=== PATIENT | female | born 1950 | race Caucasian/White ===

== ENCOUNTER 2023-02-10 16:32 | Inpatient (IN) | payer MEDICARE, SELFPAY ==
[~2023-02-10] VITALS: Ht 157.5 cm; Wt 81.6 kg
[2023-02-10 18:30] VITALS: BP 122/60; TEMP 97.1; O2SAT 95
[2023-02-10 19:29] VITALS: BP 114/58; TEMP 97.9; O2SAT 93
[2023-02-10] MEDS ORDERED: IPRATROPIUM 0.5MG/ALBUTEROL 2.5MG INH SOL UD 3ML (DUONEB) NEB ONE (20:05)
[2023-02-10] MEDS ORDERED: IPRATROPIUM 0.5MG/ALBUTEROL 2.5MG INH SOL UD 3ML (DUONEB) NEB PRN (20:10)
[2023-02-10 20:34] LABS: BASO % 0.2 % (0.0-1.0); HEMATOCRIT 38.7 % (36.0-47.0); HEMOGLOBIN 12.4 g/dl (12.0-15.5); LYMPH # 0.5 10^3/uL (1.5-5.0); LYMPH % 2.3 % (24.0-44.0); MEAN CORPUSCULAR HEMOGLOBIN 25.2 pg (27.0-33.0); MEAN CORPUSCULAR VOLUME 78.7 fl (80.0-96.0); MONO # 0.2 10^3/uL (0.0-0.8); MONO % 0.8 % (2.0-8.0); NEUTROPHILS # 22.4 10^3/uL (1.5-8.5); NEUTROPHILS % 95.8 % (36.0-66.0); PLATELET COUNT, AUTOMATED 324 10^3/uL (150-450); RED BLOOD COUNT 4.92 10^6/uL (4.00-5.40); WHITE BLOOD COUNT 23.3 10^3/uL (4.0-10.0)
[2023-02-10] MEDS ORDERED: ASPIRIN 81MG ENTERIC TABLET PO ONE (20:35)
[2023-02-10] MEDS ORDERED: GABAPENTIN 400MG CAP PO ONE (20:35)
[2023-02-10 20:59] LABS: BLOOD UREA NITROGEN 25 MG/DL (9-23); CALCIUM LEVEL 9.4 MG/DL (8.3-10.6); CARBON DIOXIDE LEVEL 26 MMOL/L (20-31); CHLORIDE LEVEL 100 MMOL/L (98-107); CREATININE FOR GFR 0.79 MG/DL (0.55-1.30); GLOMERULAR FILTRATION RATE > 60.0 (>39); GLUCOSE, FASTING 146 MG/DL (74-106); POTASSIUM SERUM 4.1 MMOL/L (3.5-5.1); SODIUM LEVEL 136 MMOL/L (136-145)
[2023-02-10] MEDS ORDERED: ACETAMINOPHEN TAB 650MG DOSE (2X325MG) PO PRN (21:00)
[2023-02-10] MEDS: GABAPENTIN 300 MG CAP PO SCH (21:00)
[2023-02-10] MEDS: ASPIRIN 81MG ENTERIC TABLET PO SCH (21:00)
[2023-02-10] MEDS ORDERED: LevoFLOXacin IV 750 MG in IV 1 EA IV SCH (21:05)
[2023-02-10] MEDS ORDERED: ANALGESIC BALM CRM 3OZ TOP PRN (21:45)
[2023-02-10] MEDS ORDERED: RAMELTEON 8 MG TAB (ROZEREM) PO ONE (21:45)
[2023-02-10 21:57] LABS: PROCALCITONIN 0.48 ng/ml
[2023-02-10 21:57] LABS: ABG BASE EXCESS 2.8 (-2.0-2.0); ABG HCO3 26.1 MMOL/L (22.0-26.0); ABG O2 SATURATION 96.4 % (95.0-99.0); ABG PARTIAL PRESSURE CO2 35.7 mmHg (35.0-45.0); ABG PARTIAL PRESSURE O2 79.6 mmHg (75.0-100.0); ABG TOTAL CO2 27.2 MMOL/L (23.0-31.0); ABG pH (ARTERIAL) 7.482 UNITS (7.350-7.450)
[2023-02-10] MEDS ORDERED: FERR325T18 PO (22:26)
[2023-02-10] MEDS ORDERED: IPRA0.00 INH (22:26)
[2023-02-10] MEDS ORDERED: COMBAER6 INH (22:26)
[2023-02-10] MEDS ORDERED: CELE20TA PO (22:26)
[2023-02-10] MEDS ORDERED: HYDR12.55 PO (22:26)
[2023-02-10] MEDS ORDERED: FLUT1BLS8 INH (22:26)
[2023-02-10] MEDS ORDERED: GABA600T4 PO ×2 (22:26)
[2023-02-10] MEDS ORDERED: CYAN-1 PO (22:26)
[2023-02-10] MEDS ORDERED: ASPI-161 PO (22:26)
[2023-02-10] MEDS ORDERED: PANT40TA29 PO (22:26)
[2023-02-10] MEDS ORDERED: HOME MED LIST COMPLETE! XX SCH (22:30)
[2023-02-10] MEDS: cefTRIAXone SOD 1 GM in D5W MINI-BAG PLUS 50 ML IV SCH (22:54)
[2023-02-10] MEDS: methylPREDNISolone 40MG 1ML VIAL IV SCH (22:54)
[2023-02-10 23:00] VITALS: O2SAT 96
[2023-02-10 23:17] VITALS: BP 103/52; TEMP 97.3; O2SAT 92
[2023-02-11] VITALS (16 sets, daily range): BP systolic 116–128; BP diastolic 55–59; TEMP 97–97.9; O2SAT 89–100
[2023-02-11] MEDS ORDERED: diphenhydrAMINE 25MG CAP PO ONE (01:05)
[2023-02-11] MEDS ORDERED: IPRATROPIUM 0.5MG/ALBUTEROL 2.5MG INH SOL UD 3ML (DUONEB) NEB SCH (02:00)
[2023-02-11 06:06] LABS: HEMATOCRIT 35.2 % (36.0-47.0); HEMOGLOBIN 11.2 g/dl (12.0-15.5); MEAN CORPUSCULAR HEMOGLOBIN 24.8 pg (27.0-33.0); MEAN CORPUSCULAR HGB CONC 31.8 g/dl (32.0-36.5); PLATELET COUNT, AUTOMATED 298 10^3/uL (150-450); RED BLOOD COUNT 4.51 10^6/uL (4.00-5.40); WHITE BLOOD COUNT 18.8 10^3/uL (4.0-10.0)
[2023-02-11] MEDS: methylPREDNISolone 40MG 1ML VIAL IV SCH ×3 (06:27→21:36)
[2023-02-11 06:37] LABS: BLOOD UREA NITROGEN 28 MG/DL (9-23); CALCIUM LEVEL 10.3 MG/DL (8.3-10.6); CARBON DIOXIDE LEVEL 28 MMOL/L (20-31); CHLORIDE LEVEL 99 MMOL/L (98-107); CREATININE FOR GFR 0.76 MG/DL (0.55-1.30); GLOMERULAR FILTRATION RATE > 60.0 (>39); GLUCOSE, FASTING 141 MG/DL (74-106); SODIUM LEVEL 136 MMOL/L (136-145)
[2023-02-11] MEDS ORDERED: TIOTROPIUM INHALER/CAPSULE (SPIRIVA) INH SCH (08:00)
[2023-02-11] MEDS ORDERED: SYMBICORT 160/4.5MCG INHALER 6GM INH SCH (08:00)
[2023-02-11] MEDS: IPRATROPIUM 0.5MG/ALBUTEROL 2.5MG INH SOL UD 3ML (DUONEB) NEB SCH ×5 (08:01→23:19)
[2023-02-11] MEDS ORDERED: hydroCHLOROthiazide 12.5 MG CAPSULE PO SCH (09:00)
[2023-02-11] MEDS: FERROUS SULFATE 325MG TAB PO SCH (09:06)
[2023-02-11] MEDS: ENOXAPARIN 40MG/0.4ML SYRINGE (J1650 PER 10MG) SC SCH (09:06)
[2023-02-11] MEDS: GABAPENTIN 300 MG CAP PO SCH ×3 (09:07→19:47)
[2023-02-11] MEDS ORDERED: NS 1,000 ML IV SCH (12:00)
[2023-02-11] MEDS: CALCIUM CARBONATE 500 MG CHEW U/D PO PRN (14:02)
[2023-02-11] MEDS: PANTOPRAZOLE 40MG VIAL IV SCH ×2 (14:03→23:27)
[2023-02-11] MEDS: guaiFENesin ER TABLET 600 MG TAB PO SCH ×2 (14:03→19:48)
[2023-02-11] MEDS ORDERED: PANTOPRAZOLE 40MG TAB (PROTONIX) PO SCH (15:00)
[2023-02-11] MEDS: BUDESONIDE 0.5 MG/2 ML INHALATION SUSPENSION INH SCH (19:18)
[2023-02-11] MEDS: FORMOTEROL FUMARATE 20 MCG/2 ML INHALATION SOLUTION (PERFOROMIST) INH SCH (19:18)
[2023-02-11] MEDS: ASPIRIN 81MG ENTERIC TABLET PO SCH (19:48)
[2023-02-11] MEDS: cefTRIAXone SOD 1 GM in D5W MINI-BAG PLUS 50 ML IV SCH (21:35)
[2023-02-12] MEDS: IPRATROPIUM 0.5MG/ALBUTEROL 2.5MG INH SOL UD 3ML (DUONEB) NEB SCH ×6 (03:18→23:12)
[2023-02-12] MEDS: CALCIUM CARBONATE 500 MG CHEW U/D PO PRN ×2 (03:41→22:51)
[2023-02-12 04:00] VITALS: BP 115/56; TEMP 96.8; O2SAT 98
[2023-02-12 04:28] LABS: BASO % 0.1 % (0.0-1.0); HEMATOCRIT 33.6 % (36.0-47.0); HEMOGLOBIN 10.5 g/dl (12.0-15.5); LYMPH # 0.7 10^3/uL (1.5-5.0); LYMPH % 3.7 % (24.0-44.0); MEAN CORPUSCULAR HEMOGLOBIN 24.6 pg (27.0-33.0); MEAN CORPUSCULAR HGB CONC 31.3 g/dl (32.0-36.5); MEAN CORPUSCULAR VOLUME 78.9 fl (80.0-96.0); MONO # 0.6 10^3/uL (0.0-0.8); MONO % 3.6 % (2.0-8.0); NEUTROPHILS # 16.4 10^3/uL (1.5-8.5); NEUTROPHILS % 91.4 % (36.0-66.0); PLATELET COUNT, AUTOMATED 302 10^3/uL (150-450); RED BLOOD COUNT 4.26 10^6/uL (4.00-5.40); WHITE BLOOD COUNT 17.9 10^3/uL (4.0-10.0)
[2023-02-12 04:50] LABS: BLOOD UREA NITROGEN 28 MG/DL (9-23); CALCIUM LEVEL 8.7 MG/DL (8.3-10.6); CARBON DIOXIDE LEVEL 25 MMOL/L (20-31); CHLORIDE LEVEL 102 MMOL/L (98-107); CREATININE FOR GFR 0.67 MG/DL (0.55-1.30); GLOMERULAR FILTRATION RATE > 60.0 (>39); GLUCOSE, FASTING 156 MG/DL (74-106); POTASSIUM SERUM 4.4 MMOL/L (3.5-5.1); SODIUM LEVEL 137 MMOL/L (136-145)
[2023-02-12] MEDS: methylPREDNISolone 40MG 1ML VIAL IV SCH ×2 (06:17→17:37)
[2023-02-12] MEDS: FORMOTEROL FUMARATE 20 MCG/2 ML INHALATION SOLUTION (PERFOROMIST) INH SCH ×3 (07:37→19:14)
[2023-02-12] MEDS: BUDESONIDE 0.5 MG/2 ML INHALATION SUSPENSION INH SCH ×2 (07:37→19:14)
[2023-02-12] MEDS: GABAPENTIN 300 MG CAP PO SCH ×3 (08:34→20:20)
[2023-02-12] MEDS: guaiFENesin ER TABLET 600 MG TAB PO SCH ×2 (08:34→20:20)
[2023-02-12] MEDS: FERROUS SULFATE 325MG TAB PO SCH (08:34)
[2023-02-12] MEDS: ENOXAPARIN 40MG/0.4ML SYRINGE (J1650 PER 10MG) SC SCH (08:34)
[2023-02-12 09:34] LABS: PERCENT SATURATION 6.5 % (13.2-45.0)
[2023-02-12 09:36] LABS: FERRITIN 30.3 NG/ML (7.3-270.7)
[2023-02-12 09:37] LABS: FOLATE 9.63 NG/ML (>5.4)
[2023-02-12] MEDS: PANTOPRAZOLE 40MG VIAL IV SCH ×2 (13:00→22:51)
[2023-02-12 14:00] VITALS: BP 122/72; TEMP 97.9; O2SAT 96
[2023-02-12] MEDS: ASPIRIN 81MG ENTERIC TABLET PO SCH (20:20)
[2023-02-12 20:32] VITALS: BP 134/72; TEMP 97.7; O2SAT 96
[2023-02-12] MEDS: cefTRIAXone SOD 1 GM in D5W MINI-BAG PLUS 50 ML IV SCH (21:58)
[2023-02-13] MEDS: IPRATROPIUM 0.5MG/ALBUTEROL 2.5MG INH SOL UD 3ML (DUONEB) NEB SCH ×5 (04:00→19:00)
[2023-02-13 05:59] LABS: BASO % 0.1 % (0.0-1.0); EOS % 0.1 % (0.0-3.0); HEMATOCRIT 34.6 % (36.0-47.0); HEMOGLOBIN 10.9 g/dl (12.0-15.5); LYMPH % 7.1 % (24.0-44.0); MEAN CORPUSCULAR HEMOGLOBIN 25.1 pg (27.0-33.0); MEAN CORPUSCULAR HGB CONC 31.5 g/dl (32.0-36.5); MEAN CORPUSCULAR VOLUME 79.5 fl (80.0-96.0); MONO # 0.7 10^3/uL (0.0-0.8); MONO % 5.5 % (2.0-8.0); NEUTROPHILS # 11.5 10^3/uL (1.5-8.5); NEUTROPHILS % 86.1 % (36.0-66.0); PLATELET COUNT, AUTOMATED 322 10^3/uL (150-450); RED BLOOD COUNT 4.35 10^6/uL (4.00-5.40); WHITE BLOOD COUNT 13.4 10^3/uL (4.0-10.0)
[2023-02-13 06:00] VITALS: BP 137/88; TEMP 97.5; O2SAT 97
[2023-02-13 06:32] LABS: BLOOD UREA NITROGEN 20 MG/DL (9-23); CALCIUM LEVEL 8.9 MG/DL (8.3-10.6); CARBON DIOXIDE LEVEL 27 MMOL/L (20-31); CHLORIDE LEVEL 103 MMOL/L (98-107); CREATININE FOR GFR 0.61 MG/DL (0.55-1.30); GLOMERULAR FILTRATION RATE > 60.0 (>39); GLUCOSE, FASTING 115 MG/DL (74-106); POTASSIUM SERUM 4.3 MMOL/L (3.5-5.1); SODIUM LEVEL 138 MMOL/L (136-145)
[2023-02-13] MEDS: methylPREDNISolone 40MG 1ML VIAL IV SCH ×4 (06:36→22:48)
[2023-02-13] MEDS: FORMOTEROL FUMARATE 20 MCG/2 ML INHALATION SOLUTION (PERFOROMIST) INH SCH ×2 (07:29→19:00)
[2023-02-13] MEDS: BUDESONIDE 0.5 MG/2 ML INHALATION SUSPENSION INH SCH ×2 (07:30→19:00)
[2023-02-13] MEDS: FERROUS SULFATE 325MG TAB PO SCH (08:54)
[2023-02-13] MEDS: guaiFENesin ER TABLET 600 MG TAB PO SCH ×2 (08:54→20:11)
[2023-02-13] MEDS: GABAPENTIN 300 MG CAP PO SCH ×2 (08:55→12:20)
[2023-02-13] MEDS: ENOXAPARIN 40MG/0.4ML SYRINGE (J1650 PER 10MG) SC SCH (08:58)
[2023-02-13] MEDS: AZITHROMYCIN 250MG TABLET PO SCH (10:17)
[2023-02-13] MEDS: PANTOPRAZOLE 40MG VIAL IV SCH ×2 (12:20→22:48)
[2023-02-13 13:57] VITALS: BP 135/65; TEMP 97.5; O2SAT 95
[2023-02-13 19:56] VITALS: BP 142/82; TEMP 98.1; O2SAT 95
[2023-02-13] MEDS: ASPIRIN 81MG ENTERIC TABLET PO SCH (20:11)
[2023-02-13] MEDS ORDERED: GABAPENTIN 400MG CAP PO SCH (21:00)
[2023-02-13] MEDS: cefTRIAXone SOD 1 GM in D5W MINI-BAG PLUS 50 ML IV SCH (21:52)
[2023-02-13] MEDS: CALCIUM CARBONATE 500 MG CHEW U/D PO PRN (22:47)
[2023-02-14] MEDS: IPRATROPIUM 0.5MG/ALBUTEROL 2.5MG INH SOL UD 3ML (DUONEB) NEB SCH ×4 (00:01→11:11)
[2023-02-14 05:21] VITALS: BP 138/80; TEMP 97.3; O2SAT 93
[2023-02-14] MEDS: methylPREDNISolone 40MG 1ML VIAL IV SCH (05:50)
[2023-02-14 05:51] LABS: BASO % 0.1 % (0.0-1.0); HEMOGLOBIN 11.4 g/dl (12.0-15.5); LYMPH # 0.7 10^3/uL (1.5-5.0); LYMPH % 7.4 % (24.0-44.0); MEAN CORPUSCULAR HGB CONC 31.7 g/dl (32.0-36.5); MEAN CORPUSCULAR VOLUME 78.9 fl (80.0-96.0); MONO # 0.5 10^3/uL (0.0-0.8); MONO % 5.2 % (2.0-8.0); NEUTROPHILS # 7.6 10^3/uL (1.5-8.5); NEUTROPHILS % 85.8 % (36.0-66.0); PLATELET COUNT, AUTOMATED 319 10^3/uL (150-450); RED BLOOD COUNT 4.56 10^6/uL (4.00-5.40); WHITE BLOOD COUNT 8.9 10^3/uL (4.0-10.0)
[2023-02-14 06:25] LABS: BLOOD UREA NITROGEN 20 MG/DL (9-23); CALCIUM LEVEL 9.2 MG/DL (8.3-10.6); CARBON DIOXIDE LEVEL 27 MMOL/L (20-31); CHLORIDE LEVEL 104 MMOL/L (98-107); CREATININE FOR GFR 0.59 MG/DL (0.55-1.30); GLOMERULAR FILTRATION RATE > 60.0 (>39); GLUCOSE, FASTING 125 MG/DL (74-106); POTASSIUM SERUM 4.4 MMOL/L (3.5-5.1); SODIUM LEVEL 139 MMOL/L (136-145)
[2023-02-14] MEDS: FORMOTEROL FUMARATE 20 MCG/2 ML INHALATION SOLUTION (PERFOROMIST) INH SCH (07:08)
[2023-02-14] MEDS: BUDESONIDE 0.5 MG/2 ML INHALATION SUSPENSION INH SCH (07:08)
[2023-02-14] MEDS: AZITHROMYCIN 250MG TABLET PO SCH (08:38)
[2023-02-14] MEDS: ENOXAPARIN 40MG/0.4ML SYRINGE (J1650 PER 10MG) SC SCH (08:38)
[2023-02-14] MEDS: GABAPENTIN 300 MG CAP PO SCH (08:39)
[2023-02-14] MEDS: FERROUS SULFATE 325MG TAB PO SCH (08:39)
[2023-02-14] MEDS: guaiFENesin ER TABLET 600 MG TAB PO SCH (08:39)
[2023-02-14] MEDS ORDERED: PRED50TA PO (10:23)
[2023-02-14] MEDS ORDERED: PRED10TA2 PO (10:23)
[2023-02-14] MEDS ORDERED: CEFD300CAP PO (10:23)
[2023-02-14] MEDS ORDERED: AZIT500T5 PO (10:23)
[2023-02-14] MEDS ORDERED: PANT40TA29 PO (10:23)
== END 2023-02-14 12:00 | disposition home or self-care (01) | DRG 190 ==
LOC: ENRESERV 16:42 → M PCU 18:29 → M MS5PR 02-12 07:17
PROVIDERS: ADMIT Internal Medicine Nephrology; ATTEND Internal Medicine Nephrology
DX: J44.1 Chronic obstructive pulmonary disease with (acute) exacerbation (principal); J18.0 Bronchopneumonia, unspecified organism; J96.21 Acute and chronic respiratory failure with hypoxia; I50.32 Chronic diastolic (congestive) heart failure; J44.0 Chronic obstructive pulmonary disease with (acute) lower respiratory infection; F32.A Depression, unspecified; H81.09 Meniere's disease, unspecified ear; K21.9 Gastro-esophageal reflux disease without esophagitis; I11.0 Hypertensive heart disease with heart failure; M54.16 Radiculopathy, lumbar region; D64.9 Anemia, unspecified; M48.061 Spinal stenosis, lumbar region without neurogenic claudication; J20.9 Acute bronchitis, unspecified; G62.9 Polyneuropathy, unspecified; K44.9 Diaphragmatic hernia without obstruction or gangrene; I27.20 Pulmonary hypertension, unspecified; Z90.49 Acquired absence of other specified parts of digestive tract; Z87.891 Personal history of nicotine dependence; Z79.82 Long term (current) use of aspirin; Z79.899 Other long term (current) drug therapy; Z88.0 Allergy status to penicillin; Z99.81 Dependence on supplemental oxygen; Z99.2 Dependence on renal dialysis; Z88.1 Allergy status to other antibiotic agents

== ENCOUNTER → 2023-08-18 | Outpatient (CLI) | payer MEDICARE ==
[~2023-08-18] MED LIST: ASPI-615 PO; AZIT500T5 PO; BUDE0.5S6 INH; CEFD300CAP PO; CELE20TA PO; CITA20TA7 PO; COMBAER6 INH; CYAN-1 PO; E-Z-GAS II EFFERVESCENT PACKET (SODIUM BICARB./CITRIC ACID/SIMETHICONE) As Ordered ONE; E-Z-HD 98% w/w 340GM SUSP BTL As Ordered ONE; E-Z-PAQUE 96% w/w SUSP 176GM BTL As Ordered ONE; FERR325T18 PO; FLUT1BLS8 INH; GABA600T4 PO; HYDR12.55 PO; IPRA0.00 INH; PANT40TA29 PO; PRED10TA2 PO; PRED50TA PO
== END ==
LOC: M RAD 09:53
PROVIDERS: ATTEND Surgery
DX: K44.9 Diaphragmatic hernia without obstruction or gangrene (principal); K22.89 Other specified disease of esophagus

== ENCOUNTER 2023-10-11 06:08 | Observation (INO) | payer MEDICARE ==
[~2023-10-11] VITALS: Ht 157.5 cm; Wt 86.3 kg
[2023-10-11] VITALS (7 sets, daily range): BP systolic 124–143; BP diastolic 70–89; TEMP 97.3–97.7; O2SAT 90–95
[~2023-10-11 06:08] MED LIST changes: +ALLE180T33 PO; -E-Z-GAS II EFFERVESCENT PACKET (SODIUM BICARB./CITRIC ACID/SIMETHICONE) As Ordered ONE; -E-Z-HD 98% w/w 340GM SUSP BTL As Ordered ONE; -E-Z-PAQUE 96% w/w SUSP 176GM BTL As Ordered ONE
[2023-10-11] MEDS ORDERED: LR 1,000 ML IV SCH (06:15)
[2023-10-11] MEDS ORDERED: MIDAZOLAM INJ 2MG/2ML VIAL As Ordered ONE (07:10)
[2023-10-11] MEDS ORDERED: LIDOCAINE 2% 100MG/5ML SDV (FOR ANES.) As Ordered ONE (07:10)
[2023-10-11] MEDS ORDERED: propofoL 200 MG/20 ML VIAL As Ordered ONE (07:10)
[2023-10-11] MEDS ORDERED: ROCURONIUM BROMIDE 50MG/5ML VIAL As Ordered ONE (07:10)
[2023-10-11] MEDS ORDERED: fentaNYL 100 MCG/2 ML INJECTION As Ordered ONE (07:11)
[2023-10-11] MEDS ORDERED: ePHEDrine SULFATE 25 MG/5 ML(5MG/ML) SYRINGE As Ordered ONE (07:42)
[2023-10-11] MEDS ORDERED: PHENYLephrine 500MCG 5ML (100MCG/ML) SYRINGE As Ordered ONE (07:43)
[2023-10-11] MEDS: HEPARIN SOD (PORCINE) 5000UNITS/ML 1ML VIAL/SYRINGE SQ ONE (07:47)
[2023-10-11] MEDS: ceFAZolin SOD 2 GM in IV 1 EA IV ONE (07:47)
[2023-10-11] MEDS ORDERED: HYDROmorphone HCL 2MG/ML 1ML VIAL As Ordered ONE (08:13)
[2023-10-11] MEDS ORDERED: KETOROLAC 60MG 2ML VIAL As Ordered ONE (08:17)
[2023-10-11] MEDS ORDERED: SUGAMMADEX SODIUM 500 MG/5 ML VIAL (BRIDION) As Ordered ONE (08:17)
[2023-10-11] MEDS ORDERED: ONDANSETRON 4MG 2ML VIAL As Ordered ONE (08:17)
[2023-10-11] MEDS ORDERED: oxyCODONE 5MG TAB PO PRN (11:10)
[2023-10-11] MEDS ORDERED: ONDANSETRON 4MG 2ML VIAL IV PRN ×2 (11:10→11:25)
[2023-10-11] MEDS ORDERED: fentaNYL 100 MCG/2 ML INJECTION IV PRN (11:10)
[2023-10-11] MEDS ORDERED: MORPHINE 2 MG/ML 1ML VIAL IV PRN ×2 (11:10→11:25)
[2023-10-11] MEDS ORDERED: ACETAMINOPHEN TAB 650MG DOSE (2X325MG) PO PRN (13:05)
[2023-10-11 13:26] LABS: BASO % 0.1 % (0.0-1.0); EOS % 0.1 % (0.0-3.0); HEMATOCRIT 41.5 % (36.0-47.0); HEMOGLOBIN 13.2 g/dl (12.0-15.5); LYMPH # 0.6 10^3/uL (1.5-5.0); LYMPH % 2.7 % (24.0-44.0); MEAN CORPUSCULAR HEMOGLOBIN 27.4 pg (27.0-33.0); MEAN CORPUSCULAR HGB CONC 31.8 g/dl (32.0-36.5); MEAN CORPUSCULAR VOLUME 86.3 fl (80.0-96.0); MONO # 0.4 10^3/uL (0.0-0.8); MONO % 1.7 % (2.0-8.0); NEUTROPHILS % 94.9 % (36.0-66.0); PLATELET COUNT, AUTOMATED 334 10^3/uL (150-450); RED BLOOD COUNT 4.81 10^6/uL (4.00-5.40); WHITE BLOOD COUNT 22.1 10^3/uL (4.0-10.0)
[2023-10-11 13:52] LABS: ALBUMIN 3.3 G/DL (3.2-5.2); ALKALINE PHOSPHATASE 99 U/L (46-116); ALT/SGPT 58 U/L (7.0-40); AST/SGOT 92 U/L (<34); BILIRUBIN,TOTAL 0.3 MG/DL (0.3-1.2); BLOOD UREA NITROGEN 23 MG/DL (9-23); CALCIUM LEVEL 9.3 MG/DL (8.3-10.6); CARBON DIOXIDE LEVEL 28 MMOL/L (20-31); CHLORIDE LEVEL 104 MMOL/L (98-107); CREATININE FOR GFR 0.98 MG/DL (0.55-1.30); GLOMERULAR FILTRATION RATE 59.2 (>39); GLUCOSE, FASTING 132 MG/DL (74-106); POTASSIUM SERUM 4.7 MMOL/L (3.5-5.1); SODIUM LEVEL 137 MMOL/L (136-145); TOTAL PROTEIN 6.8 G/DL (5.7-8.2)
[2023-10-11] MEDS: IPRATROPIUM 0.5MG/ALBUTEROL 2.5MG INH SOL UD 3ML (DUONEB) NEB SCH (14:00)
[2023-10-11 14:21] LABS: INR 1.13; PROTHROMBIN TIME 14.2 SECONDS (12.5-14.5)
[2023-10-11] MEDS: KCL 20MEQ IN D5/0.45NS 1000ML 1,000 ML IV SCH (14:21)
[2023-10-11] MEDS ORDERED: PANT40TA29 PO (15:08)
[2023-10-11] MEDS ORDERED: HOME MED LIST COMPLETE! XX SCH (15:10)
[2023-10-11] MEDS: SIMETHICONE 80MG CHEW TAB PO SCH (15:17)
[2023-10-11] MEDS: NORCO, ANEXSIA 5/325MG TABLET (HYDROcodone/ACETAMINOPHEN) PO PRN (15:18)
[2023-10-11 16:37] LABS: PROCALCITONIN <0.04 ng/ml
[2023-10-11] MEDS: cefTRIAXone SOD 1 GM in D5W MINI-BAG PLUS 50 ML IV SCH (16:38)
[2023-10-11] MEDS: SYMBICORT 160/4.5MCG INHALER 6GM INH SCH (19:16)
[2023-10-11] MEDS: HEPARIN SOD (PORCINE) 5000UNITS/ML 1ML VIAL/SYRINGE SC SCH (20:42)
[2023-10-11] MEDS: ASPIRIN 81MG ENTERIC TABLET PO SCH (20:42)
[2023-10-11] MEDS: DOXYCYCLINE HYCLATE 100MG TABLET PO SCH (20:42)
[2023-10-11] MEDS: GABAPENTIN 300 MG CAP PO SCH (20:42)
[2023-10-11] MEDS: SENOKOT S TAB PO SCH (20:43)
[2023-10-12] VITALS: BP 152/82; TEMP 97.5; O2SAT 95
[2023-10-12 04:00] VITALS: BP 147/81; TEMP 97.3; O2SAT 95
[2023-10-12 05:53] LABS: HEMATOCRIT 37.4 % (36.0-47.0); HEMOGLOBIN 12.1 g/dl (12.0-15.5); MEAN CORPUSCULAR HEMOGLOBIN 27.5 pg (27.0-33.0); MEAN CORPUSCULAR HGB CONC 32.4 g/dl (32.0-36.5); PLATELET COUNT, AUTOMATED 284 10^3/uL (150-450); WHITE BLOOD COUNT 11.3 10^3/uL (4.0-10.0)
[2023-10-12 06:18] LABS: ALKALINE PHOSPHATASE 83 U/L (46-116); ALT/SGPT 37 U/L (7.0-40); AST/SGOT 45 U/L (<34); BILIRUBIN,TOTAL 0.6 MG/DL (0.3-1.2); BLOOD UREA NITROGEN 16 MG/DL (9-23); CALCIUM LEVEL 8.9 MG/DL (8.3-10.6); CARBON DIOXIDE LEVEL 28 MMOL/L (20-31); CHLORIDE LEVEL 103 MMOL/L (98-107); CREATININE FOR GFR 0.71 MG/DL (0.55-1.30); GLOMERULAR FILTRATION RATE > 60.0 (>39); GLUCOSE, FASTING 108 MG/DL (74-106); POTASSIUM SERUM 4.4 MMOL/L (3.5-5.1); SODIUM LEVEL 136 MMOL/L (136-145); TOTAL PROTEIN 6.2 G/DL (5.7-8.2)
[2023-10-12 08:00] VITALS: BP 163/87; TEMP 97.7; O2SAT 98
[2023-10-12] MEDS: BUDESONIDE 0.5 MG/2 ML INHALATION SUSPENSION INH SCH (08:00)
[2023-10-12] MEDS: ADVAIR HFA 230/21MCG INHALER INH SCH (08:00)
[2023-10-12] MEDS ORDERED: ENOXAPARIN 40MG/0.4ML SYRINGE (J1650 PER 10MG) SC SCH (09:00)
[2023-10-12] MEDS ORDERED: CitaloPRAM (CeleXA) 20 MG TAB PO SCH (09:00)
[2023-10-12] MEDS: LACTOBACILLUS ACIDOPHILUS CAP (BACID) PO SCH (09:13)
[2023-10-12] MEDS: CYANOCOBALAMIN 500 MCG TAB PO SCH (09:13)
[2023-10-12] MEDS: hydroCHLOROthiazide 12.5 MG CAPSULE PO SCH (09:13)
[2023-10-12] MEDS: FERROUS SULFATE 325MG TAB PO SCH (09:14)
[2023-10-12] MEDS: KETOROLAC 30 MG/ML 1ML VIAL IV ONE ×2 (09:24→15:22)
[2023-10-12] MEDS: PREVNAR-20 VACCINE 0.5ML SYRINGE IM.IMMUN ONE (10:52)
[2023-10-12 12:00] VITALS: BP_SYST 129; BP_SYST 156; BP_DIAS 63; BP_DIAS 85; TEMP 97.7; O2SAT 96; O2SAT 97
[2023-10-12] MEDS ORDERED: RISATAB3 PO (12:37)
[2023-10-12] MEDS ORDERED: HYDR-3715 PO (12:37)
[2023-10-12] MEDS ORDERED: SIME80TA16 PO (12:37)
[2023-10-12] MEDS: PANTOPRAZOLE 40MG TAB (PROTONIX) PO SCH (12:46)
[2023-10-12 16:00] VITALS: BP 139/65; TEMP 98.1; O2SAT 96
[2023-10-13] MEDS ORDERED: TIOTROPIUM INHALER/CAPSULE (SPIRIVA) INH SCH (08:00)
== END 2023-10-12 17:25 | disposition home or self-care (01) ==
LOC: INTOOBSV 06:08 → M OR 06:08 → EDSTATUS 07:30 → M MSPAV 14:05
PROVIDERS: ADMIT Surgery; ATTEND Internal Medicine
DX: K44.9 Diaphragmatic hernia without obstruction or gangrene (principal); I10 Essential (primary) hypertension; E78.5 Hyperlipidemia, unspecified; J44.9 Chronic obstructive pulmonary disease, unspecified; D64.9 Anemia, unspecified; M54.9 Dorsalgia, unspecified; G89.29 Other chronic pain; F32.A Depression, unspecified; K21.9 Gastro-esophageal reflux disease without esophagitis; F41.9 Anxiety disorder, unspecified; H81.09 Meniere's disease, unspecified ear; Z87.891 Personal history of nicotine dependence; Z79.82 Long term (current) use of aspirin; Z79.899 Other long term (current) drug therapy; Z88.0 Allergy status to penicillin; Z88.1 Allergy status to other antibiotic agents; Z88.8 Allergy status to other drugs, medicaments and biological substances; Z99.81 Dependence on supplemental oxygen; I35.0 Nonrheumatic aortic (valve) stenosis; Z95.2 Presence of prosthetic heart valve
CPT/HCPCS: 36415; 43282; 71045; 80053; 81001; 83605; 83735; 84145; 85025; 85027; 85610; 86140; 87040; 87070; 87077; 87186; 87205; 90677; 93005; 94640; 96365; 96372; 96375; 96376; C1781; C9290; G0009; G0378; J0665; J0690; J0696; J1100; J1170; J1885; J2250; J2371; J2405; J3010; S2900

== ENCOUNTER 2024-02-08 07:10 | Day surgery (SDC) | payer MEDICARE ==
[~2024-02-08] VITALS: Ht 157.5 cm; Wt 83.3 kg
[~2024-02-08 07:10] MED LIST changes: +GABA-1490 PO; -GABA600T4 PO; +HYDR-3715 PO; +RISATAB3 PO; +SIME80TA16 PO
[2024-02-08] MEDS ORDERED: BUDE0.5S6 INH (07:29)
[2024-02-08] MEDS ORDERED: BUDESONIDE 0.5 MG/2 ML INHALATION SUSPENSION NEB STA (07:46)
[2024-02-08] MEDS: IPRATROPIUM 0.5MG/ALBUTEROL 2.5MG INH SOL UD 3ML (DUONEB) NEB STA (07:46)
[2024-02-08] MEDS: BUDESONIDE 0.5 MG/2 ML INHALATION SUSPENSION NEB STA (07:50)
[2024-02-08] MEDS ORDERED: fentaNYL 100 MCG/2 ML INJECTION As Ordered ONE (09:01)
[2024-02-08] MEDS ORDERED: propofoL 200 MG/20 ML VIAL As Ordered ONE (09:04)
[2024-02-08] MEDS ORDERED: LIDOCAINE 2% 100MG/5ML SDV (FOR ANES.) As Ordered ONE (09:04)
[2024-02-08 09:28] VITALS: TEMP 97.8
[2024-02-08 09:44] VITALS: BP 117/66; O2SAT 97
== END 2024-02-08 09:50 | disposition home or self-care (01) ==
LOC: M OPP 07:10
PROVIDERS: ATTEND Surgery
DX: K31.7 Polyp of stomach and duodenum (principal); K21.9 Gastro-esophageal reflux disease without esophagitis; D50.9 Iron deficiency anemia, unspecified; M19.90 Unspecified osteoarthritis, unspecified site; F41.9 Anxiety disorder, unspecified; J44.9 Chronic obstructive pulmonary disease, unspecified; Z88.0 Allergy status to penicillin; Z88.1 Allergy status to other antibiotic agents; Z79.51 Long term (current) use of inhaled steroids; Z79.899 Other long term (current) drug therapy
CPT/HCPCS: 43239; 88305; J3010